=== PATIENT | female | born 1995 | race Caucasian/White ===

== ENCOUNTER 2018-05-22 01:33 | Emergency (ER) | payer SELFPAY ==
[2018-05-22 04:11] LABS: ABS Basophils 0.1 10^3/ul (0-0.2); ABS Eosinophils 0.2 10^3/ul (0-0.6); ABS Lymphocytes 2.3 10^3/ul (1.0-4.8); ABS Monocytes 0.6 10^3/ul (0-0.8); ABS Neutrophils 5.3 10^3/ul (1.5-7.7); ABS Nucleated RBC 0 10^3/ul; Eosinophil % 1.9 % (0-6); Hematocrit 37 % (35-47); Hemoglobin 12.7 g/dl (12.0-16.0); Lymphocyte % 27.3 % (25-47); Mean Corpuscular HGB Conc 34 g/dl (31-36); Mean Corpuscular Hemoglobin 29 pg (27-31); Mean Corpuscular Volume 85 fL (80-97); Mean Platelet Volume 8.3 fL (7.4-10.4); Nucleated Red Blood Cells % 0.1; Platelet Count 256 10^3/ul (150-450); Red Blood Count 4.41 10^6/ul (4.00-5.40); Red Cell Distribution Width 13 % (10.5-15); White Blood Count 8.5 10^3/ul (3.5-10.8)
--- NOTE | 2018-05-22 04:14 | ED ---
Abdominal Pain/Female - HPI Summary HPI Summary: This patient is a 22 year old F presenting to [facility] with a chief complaint of cramping abdominal pain since earlier this evening. Patient notes that she noticed a bloody mass fall into the toilet when she was changing her tampon. She notes that she caught a second bloody mass and brought it in to the ED with her. Patient reports that she thought she miscarried but was unaware if she was . The patient rates the pain 0/10 in severity. Symptoms aggravated by nothing. Symptoms alleviated by nothing. Patient reports vaginal bleeding since 4 days ago. Patient reports that she is on NuvaRing and her LNMP is unknown. Patient reports that she has been twice before and miscarried both times. - History of Current Complaint Chief Complaint: EDAbdPain Stated Complaint: VAGINAL BLEEDING Time Seen by Provider: 05/22/18 02:45 Hx Obtained From: Patient Onset/Duration: Gradual Onset, Lasting Hours Timing: Hours Severity Currently: None Pain Intensity: 0 Pain Scale Used: 0-10 Numeric Location: Suprapubic Character: Cramping Aggravating Factor(s): Nothing Alleviating Factor(s): Nothing Associated Signs and Symptoms: Positive: Vaginal Bleeding Home Medications: Home Medications NK [No Home Medications Reported] 05/22/18 [History Confirmed 05/22/18] PMH/Surg Hx/FS Hx/Imm Hx History: Reports: Other Problems/Disorders - hx miscarriages Opthamlomology History: Denies: Hx Legally Blind EENT History: Denies: Hx Deafness - Surgical History Surgery Procedure, Year, and Place: none reported Infectious Disease History: No Infectious Disease History: Denies: Traveled Outside the [place] in Last 30 Days - Family History Known Family History: Negative: Diabetes - Social History Alcohol Use: Occasionally Substance Use Type: Reports: None Smoking Status (MU): Never Smoked Tobacco Review of Systems Negative: Fever Negative: Epistaxis Positive: Abdominal Pain Genitourinary: Other - vaginal bleeding All Other Systems Reviewed And Are Negative: Yes Physical Exam - Summary Physical Exam Summary: GENERAL: Patient is a well-developed and nourished F who is lying comfortable in the stretcher. Patient is not in any acute respiratory distress. HEAD AND FACE: Normocephalic EYES: PERRLA, EOMI x 2. EARS: Hearing grossly intact. MOUTH: Oropharynx within normal limits. NECK: Supple, trachea is midline, no adenopathy, no JVD, no carotid bruit. CHEST: Symmetric, no tenderness at palpation LUNGS: Clear to auscultation bilaterally. No wheezing or crackles. CVS: Regular rate and rhythm, S1 and S2 present, no murmurs or gallops appreciated. ABDOMEN: Soft, non-tender. Bowel sounds are normal. No abdominal abnormal pulsations. EXTREMITIES: Full ROM in all major joints, no edema, no cyanosis or clubbing. NEURO: Alert and oriented x 3. No acute neurological deficits. Speech is normal and follows commands. SKIN: Dry and warm Triage Information Reviewed: Yes Vital Signs On Initial Exam: Initial Vitals Temp Pulse Resp BP Pulse Ox 98.2 F 72 16 112/59 95 05/22/18 01:47 05/22/18 01:47 05/22/18 01:47 05/22/18 01:47 05/22/18 01:47 Vital Signs Reviewed: Yes Diagnostics - Vital Signs Vital Signs Temp Pulse Resp BP Pulse Ox 05/22/18 01:47 98.2 F 72 16 112/59 95 - Laboratory Result Diagrams: 05/22/18 03:54 Lab Statement: Any lab studies that have been ordered have been reviewed, and results considered in the medical decision making process. Re-Evaluation - Re-Evaluation 1st re-eval Re-Evaluation Time: 05:20 Change: Improved Comment: Offered for pt to stay until 7am to wait for US but pt refused and said she has an upcoming [facility] appointment. Abdominal Pain Fem Course/Dx - Course Course Of Treatment: This patient is a 22 year old F with hx presenting to [facility] with a chief complaint of cramping abdominal pain since earlier this evening and vaginal bleeding for 4 days. Pt is on NuvaRing and LNMP is unknown. Patient's test is negative. I suspect bleeding is her regular menstration. I Offered Pelvic exam and for her to stay until 7am to wait for US but pt refused and said she has an upcoming [facility] appointment. The patient will be discharged. I discussed results with patient and she reports feeling better. She is hemodynamically stable and safe for discharge. Strict return precautions given and she will otherwise follow up with her PCP and [facility]. - Diagnoses Provider Diagnoses: Encounter for test Discharge - Sign-Out/Discharge Documenting (check all that apply): Patient Departure - discharge home - Discharge Plan Condition: Stable Disposition: HOME Patient Education Materials: (ED) Forms: *Work Release Referrals: [facility] [Outside] - 1 Day Additional Instructions: Follow up with primary care physician in 1-3 days. Return to the emergency department with any new or worsening symptoms. - Billing Disposition and Condition Condition: STABLE Disposition: Home - Attestation Statements Document Initiated by Scribe: Yes Documenting Scribe: Marycarmen Garcia Provider For Whom Terry is Documenting (Include Credential): Asa Kay MD Scribe Attestation: Marycarmen Diaz, scribed for Asa Kay MD on 05/23/18 at 0339. Scribe Documentation Reviewed: Yes Provider Attestation: The documentation as recorded by the Marycarmen ramirez accurately reflects the service I personally performed and the decisions made by Radha arrington MD
[2018-05-22 05:50] VITALS: BP 132/71
== END 2018-05-22 05:45 | disposition home or self-care (01) ==
LOC: ED 01:33
DX: R10.2 Pelvic and perineal pain (principal); N93.9 Abnormal uterine and vaginal bleeding, unspecified; Z32.02 Encounter for pregnancy test, result negative
CPT/HCPCS: 36415; 84702; 85025; 99282; 99283